=== PATIENT | female | born 1945 | race Caucasian/White ===

== ENCOUNTER 2017-07-10 06:14 | Inpatient (IN) ==
[~2017-07-10 06:14] MED LIST: Bacitracin 50,000 UNIT, Polymyxin B Sulfate 500,000 UNIT, Sodium Chloride IRRigation 1,... IR ONE
[2017-07-10] MEDS ORDERED: Clindamycin 900 MG/50 ML 900 MG/50 ML IV.SOLN IVPB ONE (06:44)
[2017-07-10] MEDS ORDERED: Ringers Solution, Lactated 1,000 ML IVC SCH ×2 (06:45→13:28)
[2017-07-10] MEDS ORDERED: *HR* FentaNYL (PF) 100 MCG/2 ML VIAL ONE (06:48)
[2017-07-10] MEDS ORDERED: *HR* Propofol 200 MG/20 ML VIAL IVP ONE ×2 (06:48→07:25)
[2017-07-10] MEDS ORDERED: Lidocaine -MPF 2% 2 ML VIAL ONE (06:49)
[2017-07-10] MEDS ORDERED: *HR* Rocuronium Bromide 50 MG/5 ML VIAL ONE (06:49)
[2017-07-10] MEDS ORDERED: Dexamethasone 4 MG/ML VIAL ONE (06:49)
[2017-07-10] MEDS ORDERED: *HR* Succinylcholine 200 MG/10 ML VIAL IVP ONE (06:49)
[2017-07-10] MEDS ORDERED: Lidocaine -MPF 4% 5 ML AMPUL ONE (06:49)
[2017-07-10] MEDS ORDERED: Ondansetron 4 MG/2 ML VIAL ONE (06:49)
[2017-07-10] MEDS ORDERED: Famotidine 20 MG/2 ML VIAL IVP ONE (07:05)
--- NOTE | 2017-07-10 07:18 | Anesthesia Evaluation PreOp ---
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 RCR, Rt. Knee, R. Cystectomy) : No Alcohol Use: none Drug use: marijuana Medications and Allergies Aspirin 81 mg PO DAILY 11/17/15 [History] Cholecalciferol (D-3) [Vitamin D] 2,000 unit PO DAILY 11/17/15 [History] Glimepiride [Amaryl] 8 mg PO DAILY 11/17/15 [History] Liraglutide [Victoza 3-Hakeem] 1.8 mg SQ DAILY 11/17/15 [History] Metformin HCl [Fortamet] 1,000 mg PO HS 11/17/15 [History] Paroxetine [Paxil] 40 mg PO HS 11/17/15 [History] Pioglitazone HCl [Actos] 30 mg PO HS 11/17/15 [History] Bupropion HCl [Wellbutrin Xl] 300 mg PO DAILY 07/10/17 [History] Esomeprazole Magnesium [Nexium] 40 mg PO HS 07/10/17 [History] Vitamin B Complex [B Complex] 1 tab PO DAILY 07/10/17 [History] 3 Allergy/AdvReac Type Severity Reaction Status Date / Time Penicillins [PCN] Allergy FACIAL Verified 07/10/17 07:06 SWELLING [place] Allergy Hives Verified 07/09/17 09:33 - Meds/Allergy Pre-op Review Medications Reviewed: Yes Allergies Reviewed: Yes Beta Blockers on Current Med List: No Anesthesia Results - Labs Laboratory Tests 07/09/17 07/09/17 07/09/17 09:48 09:48 09:48 WBC 7.7 Hgb 12.6 Hct 41.1 Plt Count 238 INR 1.0 Sodium 140 Potassium 5.1 Chloride 106 Carbon Dioxide 28 BUN 8 Creatinine 0.74 Name: Maria Del Carmen Pradhan Date of Study: 11/17/2015 Procedures Performed: LEFT HEART CATH Indications: Abnormal Test - Stress Impressions: There is stable mild two vessel coronary artery disease. The left ventricle is normal and has normal contractility EF 65% Recommendations: Optimal medical therapy of patient's disease. Aggressive risk factor modification. Anesthesia Exam O2 Sat Height 1.55 m Height 1.55 m Height 1.55 m Weight 38.555 kg Weight 38.555 kg Weight 38.555 kg O2 Sat by Pulse Oximetry 96 O2 Sat by Pulse Oximetry 96 Vital Signs Temp Pulse Resp BP Pulse Ox 98.1 F 104 18 145/72 96 07/10/17 06:40 07/10/17 06:40 07/10/17 06:40 07/10/17 06:40 07/10/17 06:40 NPO (# of Hours): > 8 hrs Pain Scale: 0 Pain Scale Used: Numeric (1 - 10) - HEENT Pupil (Motor): Pupils equal, EOMI Mallampati: I Teeth: Prosthesis Denture Type: Upper: Complete (Perm. Bridge) - FUEL CELL TEST ENGINEER LOC: Oriented FUEL CELL TEST ENGINEER Motor: Normal RUE, Normal LUE, Normal RLE, Normal LLE, Normal Face FUEL CELL TEST ENGINEER Sensory: Normal: RUE, LUE, RLE, LLE, Face - Cardiac Rhythm: Regular Murmur: None JVD: No Carotid Bruit: No - Pulmonary Breath Sounds: bilateral Clear Respiratory Effort: Symmetrical Anesthesia Assess/Plan ASA Score: 2 Modified Hercules Scale for Level of Consciousness: Cooperative, oriented, and tranquil Anesthetic Plan: General Autologous Blood: Yes Monitoring Plan: Standard Monitors Recovery Plan: PACU
[2017-07-10] MEDS ORDERED: Metoclopramide 10 MG/2 ML VIAL ONE (07:25)
[2017-07-10] MEDS ORDERED: *HR* Midazolam HCl 2 MG/2 ML VIAL ONE (07:26)
[2017-07-10] MEDS ORDERED: Bacitracin/PolymyxinB OINT 14.17 GM TUBE TP ONE (07:28)
[2017-07-10] MEDS ORDERED: Propofol 500 MG/50 ML INFUS..BTL ONE ×3 (07:44→10:01)
[2017-07-10] MEDS ORDERED: *HR* Remifentanil 2 MG VIAL IVP ONE (07:44)
--- NOTE | 2017-07-10 07:55 | History & Physical Report ---
Date of Encounter: 07/10/17 Time of Encounter: 07:54 24 Hour HP Update - Instructions Instructions: If the History and Physical is less than 30 days old and was completed prior to A.M. admission and or procedure and has NOT been updated on calendar day of procedure please complete this update prior to performing procedure. - Update Patient reports changes in Medical Condition: No Changes in examination, assessment, or condition: No Preop tests/diagnostics Reviewed: Yes Pre-Op MRSA Screen: Negative Surgery Remains Indicated: Yes Consent for Planned Operative Procedure(s) Verified: Yes - Pre-Operative Checklist Preoperative Checklist Indicated: No Prophylactic Antibiotic Ordered: Yes Home Medications Include Beta Janette: No Beta Janette Taken Today (Day of Surgery): No Beta Janette Taken Yesterday (Day Prior to Surgery): No Is VTE Prophylaxis Indicated?: Yes
[2017-07-10] MEDS ORDERED: EPHEDrine 50 MG/ML VIAL ONE (08:21)
[2017-07-10] MEDS ORDERED: *HR* Morphine 10 MG/ML VIAL ONE (11:27)
[2017-07-10] MEDS ORDERED: Ondansetron 4 MG/2 ML VIAL IVP ONE (12:02)
[2017-07-10] MEDS ORDERED: *HR* HYDROmorphone (PF) 1 MG/ML SYRINGE IVP PRN (12:02)
--- NOTE | 2017-07-10 12:02 | Orthopedic Operative Note ---
Date of procedure: 07/10/17 Pre-op diagnosis: Cervical stenosis, cervical myelopathy Post-op diagnosis: same Operation/Findings: Posterior cervical fusion C4-C7: Patient was brought to the operative theater where he successfully underwent general endotracheal intubation. She was given antibiotics prior to the start of the procedure. Compression boots and stockings were used for deep vein thrombosis prophylaxis. A Christensen catheter was placed. Leads were placed on the upper extremities and lower extremities as well as the cranium. The neurologic monitoring personnel confirmed satisfactory readings prior to the start of the procedure. The patient was turned prone on the operative table. The area from the mid occipital to the mid thoracic spine was prepped and draped in the usual sterile fashion posteriorly. An incision was made and centered over the C4-C7 cervical spinous processes in the midline. The scoring incision was deepened through the cervical fascia. We used Bovie cautery and Ferro elevators to carefully dissect the lateral masses and expose them from C4-C7. Radiographic confirmation was confirmed by the radiologist via a discussion. We then placed lateral mass screws at C4, C5, C6, and C7 bilaterally using standard techniques. 8 separate 3.5 x 12 mm lateral mass screws were placed uneventfully and confirmed via fluorographic views as having satisfactory placement. After placement of the lateral mass screws, we turned our attention to the decompression. We removed the ligamentum flavum and interspinous and supraspinous ligaments at C6-7. We proceeded proximally with the decompression. This includes a laminectomy of C6 , C5, and C4. All intervening ligamentum flavum and ligamentous material was removed. Bone obtained from the laminectomies was saved in a separate sterile container for later use. After the decompression, the spinal cord could be clearly visualized from C4-C7 and was fully decompressed. It was seen to expand nicely. We copiously irrigated the wound. We then decorticated the facet joints and lateral masses from C4-5, C5-6, and C6-7 bilaterally until bleeding bone was obtained. We then used the autograft bone obtained from the laminectomy/decompression from C4-C7 and placed it over the lateral masses and facet joints in these regions. We then placed rods within the screw heads from C4-C7 bilaterally. We subsequently placed screw caps over the Rods and locked and finally tightened the construct in standard fashion. We then closed the wound in layers with 1 Vicryl for the Fascia, 2-0 Vicryl for the more superficial fascia and 2-0 Vicryl was used for skin closure. Dermabond was paced over the wound. Sterile dressing was placed over the wound as well. Cervical collar was placed. Patient was turned supine and extubated on the Hospital Bed. The patient was in good condition at the end of the procedure. All sponge counts, needle counts, and Instruments were correct at the end of the procedure. Anesthesia: GETA Surgeon: Dyllan Cason Jr Was there an salon assistant present: No Estimated blood loss (cc): 100 Specimen: None Condition: stable Disposition: PACU
[2017-07-10] MEDS: *HR* HYDROmorphone 2 MG/ML SYRINGE ONE ×2 (12:18→12:23)
[2017-07-10] MEDS ORDERED: *HR* Labetalol 20 MG/4 ML SYRINGE IVP ONE (12:50)
--- NOTE | 2017-07-10 12:54 | Anesthesia Evaluation Post Op ---
Date of Encounter: 07/10/17 Time of Encounter: 12:53 - Vital Signs Vital Signs: Vital Signs/O2 Sat, Most Current Temp Pulse Resp BP Pulse Ox 98 F 117 161 160/87 93 07/10/17 12:43 07/10/17 12:43 07/10/17 12:43 07/10/17 12:43 07/10/17 12:43 - Lungs Lungs: Clear Ascult./Percussion - Airway Airway: Non-obstructed - Cardiovascular Regular Rate - Mental Status Mental Status: Alert & Oriented, Answers Appropriately - Pain Pain Scale: 2 - Nausea Vomiting Nausea Vomiting: Not Present - Hydration Hydration: Ice chips, Christensen catheter Notes: 07/10/17 12:53 10mg labetalol IVP ordered for HR 120. Dr Nicole notified.
[2017-07-10] MEDS ORDERED: Ondansetron 4 MG/2 ML VIAL IVP PRN (13:28)
[2017-07-10] MEDS ORDERED: Naloxone 0.4 MG/ML INJ IVP PRN (13:28)
[2017-07-10] MEDS: Clindamycin 600 MG/50 ML 600 MG/50 ML IV.SOLN IVPB SCH ×2 (15:49→23:41)
[2017-07-10] MEDS ORDERED: CeFAZolin Premix DUPLEX 2,000 MG/50 ML BAG IVPB SCH (16:00)
[2017-07-10] MEDS: *HR* OxyCODONE Immed Rel 5 MG TABLET PO PRN ×2 (18:42→23:04)
[2017-07-10] MEDS: *HR* Metformin 500 MG TABLET PO SCH (19:41)
[2017-07-10] MEDS: *HR* Pioglitazone 30 MG TABLET PO SCH (19:41)
[2017-07-10] MEDS: *HR* Morphine 2 MG/ML SYRINGE IVP PRN (19:53)
[2017-07-11] MEDS: *HR* Morphine 2 MG/ML SYRINGE IVP PRN ×5 (00:26→20:52)
[2017-07-11] MEDS: *HR* OxyCODONE Immed Rel 5 MG TABLET PO PRN ×4 (02:30→18:43)
[2017-07-11 07:55] LABS: Basophils % 0.2 %; Eosinophils % 0.1 %; Hematocrit 39.5 % (35.3-44.9); Hemoglobin 12.6 g/dL (11.5-15.4); Immature Granulocytes % 0.4 % (0-4); Lymphocytes % 14.7 %; Mean Corpuscular HGB Conc 31.9 g/dL (31.6-35.5); Mean Corpuscular Hemoglobin 27.9 pg (28.0-33.3); Mean Corpuscular Volume 87.6 fL (83.0-100.0); Mean Platelet Volume 10.1 fL (9.4-12.4); Monocytes # 1.4 K/mcL (0.0-1.3); Monocytes % 10.3 %; Neutrophils # 10.1 K/mcL (1.6-8.9); Platelet Count 275 K/mcL (140-400); Red Blood Count 4.51 M/mcL (3.82-4.97); Segmented Neutrophils % 74.3 %
[2017-07-11 08:18] LABS: BUN/Creatinine Ratio 14 (6-26); Blood Urea Nitrogen 8 mg/dL (8-23); Calcium 9.1 mg/dL (8.6-10.3); Carbon Dioxide 24 mEq/L (23-29); Chloride 98 mEq/L (98-107); Glucose 232 mg/dL (70-105); Osmolality,Calculated 278 (280-300); Potassium 4.1 mEq/L (3.5-5.1); Sodium 131 mEq/L (136-145); eGFR For African Americans > 60 (> 60); eGFR For Non-African Americans > 60 (> 60)
[2017-07-11] MEDS: *HR* Glimepiride 4 MG TABLET PO SCH (09:11)
[2017-07-11] MEDS: Cholecalciferol (D-3) 1,000 UNIT TABLET PO SCH (09:11)
[2017-07-11] MEDS: BuPROPion XL (24 HR) 150 MG TABLET PO SCH (09:11)
[2017-07-11] MEDS: Vitamin B Complex/Vit C/Vit E 1 EACH TABLET PO SCH (09:12)
[2017-07-11] MEDS: (Liraglutide [Victoza 3-Pak] 1.8 MG) SQ SCH (09:12)
[2017-07-11] MEDS: Aspirin 81 MG TAB.CHEW PO SCH (09:12)
[2017-07-11] MEDS ORDERED: 0.9 % Sodium Chloride 1,000 ML ONE (12:52)
[2017-07-11] MEDS: 0.9 % Sodium Chloride 1,000 ML IVC SCH ×2 (12:59→20:58)
[2017-07-11 13:30] LABS: Basophils % 0.3 %; Hematocrit 36.9 % (35.3-44.9); Hemoglobin 11.7 g/dL (11.5-15.4); Immature Granulocytes % 0.6 % (0-4); Lymphocytes # 2.3 K/mcL (0.6-4.6); Lymphocytes % 16.3 %; Mean Corpuscular HGB Conc 31.7 g/dL (31.6-35.5); Mean Corpuscular Hemoglobin 28.1 pg (28.0-33.3); Mean Corpuscular Volume 88.7 fL (83.0-100.0); Mean Platelet Volume 10.1 fL (9.4-12.4); Monocytes # 1.5 K/mcL (0.0-1.3); Monocytes % 10.5 %; Neutrophils # 10.1 K/mcL (1.6-8.9); Platelet Count 253 K/mcL (140-400); Red Blood Count 4.16 M/mcL (3.82-4.97); Segmented Neutrophils % 72.3 %
[2017-07-11 13:54] LABS: BUN/Creatinine Ratio 12 (6-26); Blood Urea Nitrogen 8 mg/dL (8-23); Calcium 8.9 mg/dL (8.6-10.3); Carbon Dioxide 24 mEq/L (23-29); Chloride 97 mEq/L (98-107); Glucose 225 mg/dL (70-105); Osmolality,Calculated 275 (280-300); Sodium 130 mEq/L (136-145); eGFR For African Americans > 60 (> 60); eGFR For Non-African Americans > 60 (> 60)
[2017-07-11] MEDS: *HR* Metformin 500 MG TABLET PO SCH (20:50)
[2017-07-11] MEDS: *HR* Pioglitazone 30 MG TABLET PO SCH (20:52)
[2017-07-12] MEDS: *HR* Morphine 2 MG/ML SYRINGE IVP PRN (01:57)
[2017-07-12] MEDS: *HR* OxyCODONE Immed Rel 5 MG TABLET PO PRN ×3 (05:21→18:31)
[2017-07-12] MEDS: 0.9 % Sodium Chloride 1,000 ML IVC SCH (05:21)
--- NOTE | 2017-07-12 08:17 | Spine Progress Note ---
Date of Encounter: 07/11/17 Time of Encounter: 17:20 Subjective Principal diagnosis: Cervical myelopathy, status post posterior cervical fusion Interval history: The patient complains of neck pain. . Afebrile vital signs are stable. Dressing is clean dry and intact. Neurovascularly intact with regard to bilateral upper extremities. Fires all upper and lower extremity motor groups. Assessment :stable. Plan mobilize ,continue analgesics, discharge planning. Will likely be going to rehabilitation. Objective Vital signs: Vital Signs Temp Pulse Resp BP Pulse Ox 07/12/17 06:45 99.5 F 116 18 127/76 92 07/12/17 00:11 98.0 F 76 14 147/81 93 07/11/17 19:36 98.2 F 132 17 162/79 89 07/11/17 16:32 98.3 F 113 15 108/72 92 07/11/17 12:31 97.7 F 116 92 116/56 18 07/11/17 09:22 94 Intake and Output 07/11/17 07/12/17 07/12/17 23:59 07:59 15:59 Intake Total 1000 / 1000 1000 / 1000 Output Total 500 / 500 600 / 600 Balance 500 / 500 400 / 400 Intake: IV Fluids 1000 / 1000 1000 / 1000 0.9 % Sodium Chloride 1,000 ML 1000 / 1000 1000 / 1000 @ 125 mls/hr IVC .Q8H [facility] Rx#: [id number] Output: Urine 500 / 500 600 / 600 Other: Meal Dinner Percent of Meal Consumed 0% Weight 85.5 kg Patient Weight 07/12/17 23:59 Weight 85.5 kg - Labs CBC & BMP: 07/11/17 13:06 07/11/17 13:06 Labs: Abnormal lab results WBC 13.9 K/mcL (4.3-11.1) H 07/11/17 13:06 Neutrophils # 10.1 K/mcL (1.6-8.9) H 07/11/17 13:06 Monocytes # 1.5 K/mcL (0.0-1.3) H 07/11/17 13:06 Sodium 130 mEq/L (136-145) L 07/11/17 13:06 Chloride 97 mEq/L (98-107) L 07/11/17 13:06 Glucose 225 mg/dL (70-105) H 07/11/17 13:06 POC Glucose 177 (58-89) H 07/10/17 19:54 Calculated Osmolality 275 (280-300) L 07/11/17 13:06 Consult Discharge Plan - Plan Referrals: Erica Shields MD [Primary Care Provider] -
[2017-07-12] MEDS: *HR* Glimepiride 4 MG TABLET PO SCH (09:47)
[2017-07-12] MEDS: Cholecalciferol (D-3) 1,000 UNIT TABLET PO SCH (09:47)
[2017-07-12] MEDS: Aspirin 81 MG TAB.CHEW PO SCH (09:47)
[2017-07-12] MEDS: Vitamin B Complex/Vit C/Vit E 1 EACH TABLET PO SCH (09:47)
[2017-07-12] MEDS: BuPROPion XL (24 HR) 150 MG TABLET PO SCH (09:47)
[2017-07-12] MEDS: (Liraglutide [Victoza 3-Pak] 1.8 MG) SQ SCH (09:48)
--- NOTE | 2017-07-12 18:32 | Discharge Summary ---
Date of Encounter: 07/12/17 Time of Encounter: 18:30 - Discharge Diagnosis (1) Cervical stenosis of spinal canal Priority: Primary Status: Chronic (2) Cervical myelopathy Priority: Secondary Status: Chronic - Discharge Medications Prescriptions: OxyCODONE Immed Rel [Roxicodone 5 MG] 5 mg PO Q4HR PRN #30 tablet PRN Reason: Severe pain Home Medications: Aspirin 81 mg PO DAILY 11/17/15 [History] Cholecalciferol (D-3) [Vitamin D] 2,000 unit PO DAILY 11/17/15 [History] Glimepiride [Amaryl] 8 mg PO DAILY 11/17/15 [History] Liraglutide [Victoza 3-Hakeem] 1.8 mg SQ DAILY 11/17/15 [History] Metformin HCl [Fortamet] 1,000 mg PO HS 11/17/15 [History] Paroxetine [Paxil] 40 mg PO HS 11/17/15 [History] Pioglitazone HCl [Actos] 30 mg PO HS 11/17/15 [History] Bupropion HCl [Wellbutrin Xl] 300 mg PO DAILY 07/10/17 [History] Esomeprazole Magnesium [Nexium] 40 mg PO HS 07/10/17 [History] Vitamin B Complex [B Complex] 1 tab PO DAILY 07/10/17 [History] OxyCODONE Immed Rel [Roxicodone 5 MG] 5 mg PO Q4HR PRN #30 tablet 07/12/17 [Rx] Allergies/Adverse Reactions: 3 Allergy/AdvReac Type Severity Reaction Status Date / Time Penicillins [PCN] Allergy FACIAL Verified 07/10/17 07:06 SWELLING [place] Allergy Hives Verified 07/09/17 09:33 - Impressions ITS Impressions Cervical Spine X-Ray 07/10/17 00:00 IMPRESSION: Intraprocedural fluoroscopic spot images as above. See separate procedure report for more information. D/ / 07/10/2017 11:49:15 Juan Marquez MD / bcarter Interpreting Provider: Juan Marquez MD Fluoroscopy 07/10/17 00:00 IMPRESSION: Intraprocedural fluoroscopic spot images as above. See separate procedure report for more information. D/ / 07/10/2017 11:49:15 Juan Marquez MD / bcarter Interpreting Provider: Juan Marquez MD Cervical Spine X-Ray 07/11/17 12:04 IMPRESSION: 1. Status post anterior and posterior cervical fusion as detailed above. No evidence of acute hardware complication. Unchanged perihardware lucency involving the anterior cervical fusion at C3-C4. 2. No radiographic evidence of acute osseous abnormality within cervical spine. D/ / 07/11/2017 08:47:01 Sean Cortez MD / [email or web address] Interpreting Provider: Sean Cortez MD Date of admission: 07/10/17 13:13 Primary care physician: Erica Shields, Consults: 07/10/17 13:28 Consult to Occupational Therapy [CONS] Routine Comment: Evaluate, develop and implement POC Reason for Consult: Postoperative Consult to Physical Therapy [CONS] Routine Comment: Evaluate, develop and implement POC Reason for Consult: Postoperative rehabilitation Consult to Spine Navigator [CONS] [CONS] Routine 07/11/17 15:18 Consult to Marine Animal Trainer [CONS] Routine Reason for SW Consult: dc planning - Patient Status Disposition: Transfer SNF Condition: Good Functional capacity at discharge: uses cane/walker Overall status at discharge: patient is progressing back to baseline - Discharge Instructions Follow Up With: Erica Shields MD [Primary Care Provider] - - Diet and Activity Activity: as per physical therapy, wear oxygen at all times - Hospital Course Hospital course: Ms. Pradhan is a 72 year old female The patient had an uneventful postoperative course. Progressed from intravenous analgesic needs to oral analgesic needs only. Remained neurovascularly intact and mobilized satisfactorily. All intraoperative and/or postoperative radiographic studies were satisfactory. Patient is discharged with plan for rehabilitation and follow-up in 2 weeks post discharge on analgesic medication and patient's home medications. - Time Spent with Patient Total time spent providing and/or coordinating discharge services: - VTE Documentation of Mechanical Device: Intermittent pneumatic compression device
[2017-07-12] MEDS: *HR* Pioglitazone 30 MG TABLET PO SCH (20:19)
[2017-07-12] MEDS: Acetaminophen 325 MG TABLET PO PRN (20:19)
[2017-07-12] MEDS: *HR* Metformin 500 MG TABLET PO SCH (20:20)
[2017-07-13] MEDS: *HR* OxyCODONE Immed Rel 5 MG TABLET PO PRN ×3 (02:20→13:46)
[2017-07-13] MEDS: Acetaminophen 325 MG TABLET PO PRN (05:31)
[2017-07-13] MEDS: Cholecalciferol (D-3) 1,000 UNIT TABLET PO SCH (09:12)
[2017-07-13] MEDS: Aspirin 81 MG TAB.CHEW PO SCH (09:12)
[2017-07-13] MEDS: Vitamin B Complex/Vit C/Vit E 1 EACH TABLET PO SCH (09:12)
[2017-07-13] MEDS: BuPROPion XL (24 HR) 150 MG TABLET PO SCH (09:12)
[2017-07-13] MEDS: *HR* Glimepiride 4 MG TABLET PO SCH (09:12)
[2017-07-13] MEDS: (Liraglutide [Victoza 3-Pak] 1.8 MG) SQ SCH (09:13)
[2017-07-13 12:42] VITALS: BP 106/51
== END 2017-07-13 15:40 | DRG 472 ==
LOC: SAMDAY 06:14 → 3NENU 13:13
PROVIDERS: ADMIT Orthopaedic Surgery Orthopaedic Surgery of the Spine; ATTEND Orthopaedic Surgery Orthopaedic Surgery of the Spine